=== PATIENT | female | born 1995 | race Two or more races ===

== ENCOUNTER 2019-03-03 21:16 | Observation (INO) | payer OTHER ==
--- NOTE | 2019-03-03 22:43 | ER Document Report ---
ED Medical Screen (RME) - General Chief Complaint: Breast Problem Stated Complaint: BREAST PAIN Time Seen by Provider: 03/03/19 22:41 Mode of Arrival: Ambulatory Information source: Patient Notes: 23-year-old female presented to ED for increased redness swelling and pain to the left breast. [place] told that it was eczema. She is now having a hard ball under the nipple on the left breast. She states she is just moved to this area and she does not have a local doctor to be seen. She denies any fevers or chills. The area is r ed warm to the touch and firm. She does have breast implants. Patient is alert oriented respirations regular and unlabored speaking in full sentences. I have greeted and performed a rapid initial assessment of this patient. A comprehensive ED assessment and evaluation of the patient, analysis of test results and completion of medical decision making process will be conducted by an additional ED providers. Dictation of this chart was performed using voice recognition software; therefore, there may be some unintended grammatical errors. TRAVEL OUTSIDE OF THE [place] IN LAST 30 DAYS: No Past Medical History Renal/ Medical History: Denies: Hx Peritoneal Dialysis
[2019-03-04 05:07] LABS: ABSOLUTE BASOPHILS # (AUTO) 0.1 10^3/uL (0.0-0.2); ABSOLUTE EOSINOPHILS # (AUTO) 1.2 10^3/uL (0.0-0.6); ABSOLUTE MONOCYTES (AUTO) 0.9 10^3/uL (0.1-1.4); BASOPHILS % (AUTO) 0.9 % (0-2); EOSINOPHILS % (AUTO) 10.7 % (0-6); HEMOGLOBIN 10.9 g/dL (12.0-15.5); LYMPHOCYTES % (AUTO) 17.9 % (13-45); MEAN CORPUSCULAR HEMOGLOBIN 24.4 pg (27.0-33.4); MEAN CORPUSCULAR VOLUME 76 fl (80-97); PLATELET COUNT 345 10^3/uL (150-450); RED BLOOD COUNT 4.47 10^6/uL (3.72-5.28); RED CELL DISTRIBUTION WIDTH 18.8 % (11.5-14.0); SEGMENTED NEUTROPHILS % (AUTO) 62.5 % (42-78); TOTAL CELLS COUNTED % (AUTO) 100 %; WHITE BLOOD COUNT 11.2 10^3/uL (4.0-10.5)
[2019-03-04] MEDS ORDERED: OXYCODONE-ACETAMINOPHEN 5-325 MG TABLET PO ONE (05:09)
--- NOTE | 2019-03-04 05:10 | ER Document Report ---
ED Breast Problem - General Chief Complaint: Breast Problem Stated Complaint: BREAST PAIN Time Seen by Provider: 03/03/19 22:41 Mode of Arrival: Ambulatory Notes: Patient is a 23-year-old female who presents the emergency department with a chief complaint of left breast pain/tenderness. She states that she has had pr oblems with her left breast for a while, but states that now she feels a hard, tender, red bump on the 9:00 area of her left breast. She denies any history of MRSA. She has not had this before. Denies any fever, body aches, chills, or any other symptoms. She is not currently breast-feeding. Patient has a history of breast augmentation. TRAVEL OUTSIDE OF THE [place] IN LAST 30 DAYS: No - Related Data Allergies/Adverse Reactions: No Known Allergies Allergy (Unverified 03/04/19 05:51) Past Medical History - General Information source: Patient - Social History Smoking Status: Unknown if Ever Smoked Family History: Reviewed & Not Pertinent Patient has suicidal ideation: No Patient has homicidal ideation: No Renal/ Medical History: Denies: Hx Peritoneal Dialysis Review of Systems - Review of Systems Notes: REVIEW OF SYSTEMS: CONSTITUTIONAL : Denies recent illness. Denies recent unintentional weight loss. Denies fever, chills, or sweats. EENT: Denies eye, ear, throat, or mouth pain, discharge, or symptoms. Denies nasal or sinus congestion. CARDIOVASCULAR: Denies chest pain. RESPIRATORY: Denies shortness of breath, cough, congestion, difficulty breathing, or wheezing. GASTROINTESTINAL: Denies nausea, vomiting, and diarrhea. Denies abdominal pain. Denies constipation. GENITOURINARY: Denies difficulty urinating, burning, blood in urine, urgency or frequency. MUSCULOSKELETAL: Denies neck and back pain. Denies joint pain or swelling. SKIN: See HPI HEMATOLOGIC : Denies easy bruising or bleeding. LYMPHATIC: Denies swollen, painful, enlarged glands. NEUROLOGICAL: Denies no numbness or tingling denies weakness. Denies headache. Denies altered mental status. Denies alteration in speech. PSYCHIATRIC: Denies stress, anxiety, alteration in sleep patterns, or depression. All other systems reviewed and negative. Physical Exam - Vital signs Vitals: Temp Pulse Resp BP Pulse Ox 97.6 F 82 16 105/53 L 100 03/04/19 03:30 03/04/19 03:30 03/04/19 03:30 03/04/19 03:30 03/04/19 03:30 - Notes Notes: PHYSICAL EXAMINATION: GENERAL: Appears well, healthy, well-nourished, no acute distress. HEAD: Normocephalic, atraumatic. EYES: PERRL, conjunctiva normal, all extraocular movements intact, sclera nonicteric ENT: Moist mucous membranes. NECK: Supple, no noticeable swelling, redness, rash. Normal range of motion. LUNGS: Equal breath sounds bilaterally and clear to auscultation. No wheezes rales or rhonchi. CARDIOVASCULAR: S1-S2, regular rate, regular rhythm. Radial pulses 2+, normal. ABDOMEN: Normoactive bowel sounds. Soft, nontender, no guarding, no rebound tenderness, and no masses palpated. EXTREMITIES: Normal strength and range of motion, no pitting or edema. No cyanosis. NEUROLOGICAL: Moves all extremities upon command. Strength 5/5 in all extremities. PSYCH: Normal mood, normal affect. SKIN: Warm, dry. No rash, lesions, ulcerations noted. Normal skin turgor. Breast: Left breast tender at 9:00 hour of areola. Edema and erythema noted. Pocket of fluid noted on ultrasound. Course - Re-evaluation Re-evalutation: 03/04/19 05:14 Patient's physical exam and bedside ultrasound are consistent with a left breast abscess. I have spoke with Dr. Nguyen in regards to this. He will see the patient in about an hour. 03/04/19 07:41 Dr. Phillips is at bedside and he will bring the patient to the OR for an I&D of her left breast. Patient received clindamycin here in the emergency department. She also received IV fluids. - Vital Signs Vital signs: Temp Pulse Resp BP Pulse Ox 97.6 F 82 16 105/53 L 100 03/04/19 03:30 03/04/19 03:30 03/04/19 03:30 03/04/19 03:30 03/04/19 03:30 - Laboratory Result Diagrams: 03/04/19 03:35 03/04/19 03:35 Discharge - Discharge Clinical Impression: Left breast abscess Condition: Stable Disposition: SAME DAY SURGERY Admitting Provider: Surgicalist
[2019-03-04 05:21] LABS: ALANINE AMINOTRANSFERASE 28 U/L (9-52); ALBUMIN 4.3 g/dL (3.5-5.0); ALKALINE PHOSPHATASE 75 U/L (38-126); ANION GAP 10 (5-19); ASPARTATE AMINO TRANSFERASE 31 U/L (14-36); BILIRUBIN,DIRECT 0.2 mg/dL (0.0-0.4); BILIRUBIN,TOTAL 0.3 mg/dL (0.2-1.3); BLOOD UREA NITROGEN 10 mg/dL (7-20); CALCIUM 9.4 mg/dL (8.4-10.2); CARBON DIOXIDE 27 mmol/L (22-30); CHLORIDE 104 mmol/L (98-107); GLUCOSE 86 mg/dL (75-110); POTASSIUM 4.4 mmol/L (3.6-5.0); SODIUM 140.8 mmol/L (137-145); TOTAL PROTEIN 7.3 g/dL (6.3-8.2)
[2019-03-04] MEDS ORDERED: CLINDAMYCIN 300 MG/D5W RTU 300 MG/50 ML RTUPB IV SCH (06:00)
[2019-03-04] MEDS ORDERED: NORMAL SALINE 1000 ML 1,000 ML IV ONE (07:34)
--- NOTE | 2019-03-04 12:50 | HISTORY AND PHYSICAL E ---
History and Physical NAME: SYLVESTER DURAN : 1995 AGE: 23Y ADMITTED: 03/04/2019 ROOM: ED15 CHIEF COMPLAINT: PAIN LEFT BREAST. HISTORY OF PRESENT ILLNESS: This is a 34-year-old female about 6 months , noted lump on the left periareolar area about 3 days ago. She did have eczematous lesion along the periareolar area on the left breast since after her breast implants about 3 years ago. She is being followed at the [facility] for this and given creams without improvement. She does not breastfeed her . Denies any fever or chills. Is complaining of a pain along the left breast area for 3 days. Denies any nipple discharge. PAST HISTORY: Unremarkable. SURGICAL HISTORY: Bilateral breast implants 3 years ago SOCIAL HISTORY: Denies smoking, drinking, or recreational drug use. FAMILY HISTORY: Negative for diabetes. REVIEW OF SYSTEMS: As in HPI; the rest of systems unremarkable. PHYSICAL EXAMINATION: GENERAL: A well-developed, well-nourished, 24-year-old female alert and oriented and in no apparent acute distress. HEENT: Neck is supple. No thyromegaly. LUNGS: Clear. HEART: Regular sinus rhythm. CHEST: Left breast there is a reddish discoloration along the left periareolar area with eczematous lesion. There is a tender lump in the inferior aspect of the left areolar area about 3 cm. ABDOMEN: Soft, nontender. EXTREMITIES: No edema. IMPRESSION: Abscess on the left breast. PLAN: 1. Started on IV antibiotics, clindamycin. 2. Incision and drainage abscess, left breast. DICTATING PHYSICIAN: KATHY MENJIVAR M.D. [id number] PHY#: [id number] ID: [id number] JOB#: [id number] ACCT: [id number] cc:LOCAL, NO MD Becka SPICER
[2019-03-04] MEDS ORDERED: KETOROLAC TROMETHAMINE INJ/PF 30 MG/1 ML SDV IV PRN (13:22)
[2019-03-04] MEDS ORDERED: NORMAL SALINE 1000 ML 1,000 ML IV PRN ×2 (13:22→15:40)
[2019-03-04] MEDS ORDERED: KETOROLAC TROMETHAMINE INJ/PF 30 MG/1 ML SDV ONE (13:23)
[2019-03-04] MEDS ORDERED: ONDANSETRON HCL INJ/PF 4 MG/2 ML SDV ONE (13:23)
[2019-03-04] MEDS ORDERED: ONDANSETRON HCL INJ/PF 4 MG/2 ML SDV IV PRN (13:23)
[2019-03-04] MEDS ORDERED: CLINDAMYCIN 600 MG/D5W RTU 600 MG/50 ML RTUPB IV ONE (14:03)
[2019-03-04] MEDS ORDERED: LIDOCAINE 0.5% INJ-PF (5 MG/ML) 50 ML SDV ONE (14:05)
[2019-03-04] MEDS ORDERED: KETAMINE HCL INJ 500 MG/10 ML VIAL ONE (14:20)
[2019-03-04] MEDS ORDERED: HYDROMORPHONE HCL INJ/PF 2 MG/ML AMPULE ONE (14:21)
[2019-03-04] MEDS ORDERED: PROPOFOL INJ 200 MG/20 ML VIAL IV ONE (14:21)
[2019-03-04] MEDS ORDERED: MIDAZOLAM 2 MG/2 ML INJ ONE (14:21)
[2019-03-04] MEDS ORDERED: FENTANYL CITRATE INJ/PF 100 MCG/2 ML AMPUL ONE ×2 (14:21→14:23)
[2019-03-04] MEDS ORDERED: CLINDAMYCIN 600 MG/D5W RTU 600 MG/50 ML RTUPB IV SCH (15:00)
[2019-03-04] MEDS ORDERED: MEPERIDINE HCL/PF INJ 25 MG/1 ML DISP.SYRIN IV PRN (15:09)
[2019-03-04] MEDS ORDERED: DIPHENHYDRAMINE HCL 50 MG/ML VIAL IV PRN (15:09)
[2019-03-04] MEDS ORDERED: MORPHINE SULFATE 10 MG/ML INJ IV PRN (15:09)
[2019-03-04] MEDS ORDERED: OXYCODONE-ACETAMINOPHEN 5-325 MG TABLET PO PRN ×2 (15:09)
[2019-03-04] MEDS ORDERED: PROMETHAZINE HCL INJ 25 MG/1 ML VIAL IV PRN ×2 (15:09)
[2019-03-04] MEDS ORDERED: FENTANYL CITRATE INJ/PF 100 MCG/2 ML AMPUL IV PRN ×3 (15:09)
--- NOTE | 2019-03-04 15:44 | OPERATIVE REPORT E ---
Operative Report NAME: SYLVESTER DURAN : 1995 AGE: 23Y DATE OF SURGERY: 03/04/2019 ROOM: 207 PREOPERATIVE DIAGNOSIS: LEFT BREAST ABSCESS. POSTOPERATIVE DIAGNOSIS: LEFT BREAST ABSCESS, CHRONIC ECZEMATOUS LESION PERIAREOLAR AREA. OPERATION: INCISION AND DRAINAGE OF ABSCESS LEFT BREAST, BIOPSY OF AREOLAR AREA. SURGEON: KATHY MENJIVAR M.D. ANESTHESIA: Local MAC. INDICATION: This is a 23-year-old female who is about six months and noted an eczematoid lesion along the left periareolar area since after her breast implants. She noted a lump along the left periareolar area that is tender for the past three days. PROCEDURE: After adequate IV sedation, the patient was placed in supine position and the left breast prepped and draped in the usual sterile fashion. After appropriate timeout, local anesthesia was then infiltrated along the areolar area of the lower inner quadrant of the left breast. A small stab incision about 8 mm was made, and a gush of purulent material noted. Specimens for cultures were then obtained. The cavity was then probed and irrigated. A small incision going distally from the mid part of the original incision for a distance of about 5 mm. A small piece of the areolar tissue was then excised and sent for biopsy. This was done because of chronic eczematous lesion on the breast, just to make sure there is no Paget's disease. The cavity was then further irrigated and no evidence of any abscess noted. The cavity was then packed with 1/4 inch Iodoform gauze. At least 5 mL of purulent material was evacuated. Sterile dressing was placed over the drain site. The patient tolerated the procedure well. Needle, instrument and sponge count were all correct. Estimated blood loss was less than 5 mL. The patient was then brought to the recovery room in satisfactory condition. DICTATING PHYSICIAN: KATHY MENJIVAR M.D. [id number] PHY#: [id number] ID: [id number] JOB#: [id number] ACCT: [id number] cc:KATHY MENJIVAR M.D. >
[2019-03-04 18:39] VITALS: BP 95/41
--- NOTE | 2019-03-07 14:14 | DISCHARGE SUMMARY E ---
Discharge Summary NAME: SYLVESTER DURAN : 1995 AGE: 23Y ADMITTED: 03/04/2019 DISCHARGED: 03/04/2019 FINAL DIAGNOSIS: Abscess of left breast. PROCEDURE DONE: Incision and drainage abscess left breast, 03/04/2019. SURGEON: Dr. Menjivar [facility] COURSE: This is a 23-year-old female who had a history of breast implants about 3 years ago. She was noted to have an eczematous lesion along the periareolar area since placement of the breast prosthesis and being followed at the [facility] for this. Three days prior to admission developed a painful lump along the left breast. This appeared to be an abscess. She was taken to the OR on the same day of admission where incision and drainage of an abscess along the left periareolar area along the left lower inner quadrant. About 4 to 5 mL of purulent material was extruded out and the wound was then packed with 1/4 inch Iodoform gauze. The patient was then placed on p.o. clindamycin. She was then discharged the same day to be followed up in the surgical clinic for removal of packing. The culture showed MRSA sensitive to clindamycin. DICTATING PHYSICIAN: KATHY MENJIVAR M.D. [id number] PHY#: [id number] ID: [id number] JOB#: [id number] ACCT: [id number] cc:Becka BIRD MD, M.D. JACQUELINE AUGSBURGER, PA >
== END 2019-03-04 18:59 | disposition home or self-care (01) ==
LOC: ER 21:16 → EH 03-04 10:10 → 2N 03-04 13:00
PROVIDERS: ATTEND Surgery
PROC: 0HBU0ZX Excision of Left Breast, Open Approach, Diagnostic (ICD-10-PCS; 2019-03-04)
PROC: 0H9U0ZZ Drainage of Left Breast, Open Approach (ICD-10-PCS; principal; 2019-03-04 16:45)
DX: N61.1 Abscess of the breast and nipple (principal); B95.62 Methicillin resistant Staphylococcus aureus infection as the cause of diseases classified elsewhere; Z98.82 Breast implant status
CPT/HCPCS: 99285; 96361; 96365; 36415; 87040; 87070; 87205; 84703; 85025; 87075; 87077; 80053; 87186; 88305 ×2; 88342; 00400; 10060; 19101; G0378 ×2; A6266; J2250; J3490 ×3; J3010; J1885; J2405; J7030; J2704; 400; J1170